=== PATIENT | female | born 1950 | race Caucasian/White ===

== ENCOUNTER 2022-05-01 13:04 | Outpatient (CLI) | payer MEDICARE, SELFPAY ==
[2022-05-01 13:16] LABS: Basophils Percent Auto 0.6 % (0.2-1.2); Eosinophils Absolute Auto 0.2 K/mm3 (0-0.3); Eosinophils Percent Auto 2.3 % (0-4.4); Hematocrit 41.8 % (37.0-47.0); Hemoglobin 13.3 g/dL (12.0-15.0); Immature Granulocyte Absolute 0.02 K/mm3 (0.00-0.031); Immature Granulocyte Percent A 0.3 % (0-0.5); Lymphocytes Absolute Auto 1.19 K/mm3 (0.9-3.2); Lymphocytes Percent Auto 17.9 % (18.3-44.2); Mean Corpuscular HGB Conc 31.8 g/dl (32-36); Mean Corpuscular Hemoglobin 30.1 pg (26-34); Mean Corpuscular Volume 94.6 fl (80-100); Mean Platelet Volume 11.7 fl (7.4-10.4); Monocytes Absolute Auto 0.5 K/mm3 (0.1-0.6); Monocytes Percent Auto 7.8 % (2.6-8.5); Neutrophils Absolute Auto 4.7 K/mm3 (1.3-6.7); Neutrophils Percent Auto 71.1 % (45.5-73.1); Platelet Count Result 207 k/mm3 (150-375); Red Blood Count 4.42 M/mm3 (4.2-5.4); Red Cell Distribution Width 13.5 % (11.5-14.5); White Blood Count 6.6 K/mm3 (4.5-10.0)
[2022-05-01 13:20] LABS: Blood Urea Nitrogen 9 mg/dL (8-26); Carbon Dioxide 26 mmol/L (22-30); Chloride 103 mmol/L (98-109); Estimated Glomerular Filt Rate > 60; Glucose 117 mg/dL (70-105); Ionized Calcium (POC) 1.11 mmol/L (1.11-1.31); Potassium 4.2 mmol/L (3.5-4.9); Sodium 139 mmol/L (138-146)
== END 2022-05-01 13:05 | disposition home or self-care (01) ==
LOC: ANHLAB 13:05
PROVIDERS: Visit Provider Internal Medicine Hematology & Oncology
DX: D75.1 Secondary polycythemia (principal)
CPT/HCPCS: 36415; 80047; 85025

== ENCOUNTER 2022-05-06 13:47 | Outpatient (CLI) | payer MEDICARE, SELFPAY ==
--- NOTE | ~2022-05-06 | CT_ITS ---
EXAMINATION: CTA chest PE protocol DATE: 05/06/2022 14:27 INDICATION: Acute pulmonary embolism TECHNIQUE: Computed tomography angiography (CTA) of the chest was performed with 100 mL Omnipaque-350 intravenous contrast timed to evaluate the pulmonary arteries. Coronal maximum intensity projection 3D-reconstructions were created by the technologist. Automated exposure control and iterative reconst ruction technique were employed. Exam dose: 264.24 mGy-cm total exam DLP. COMPARISON: None. FINDINGS: There is diagnostic contrast enhancement of the pulmonary arteries. There are right upper a nd middle lobe and particularly bilateral lower lobe pulmonary emboli. No thoracic aortic aneurysm or dissection. Heart size is within normal range. There is slight pericar dial fluid. No hilar or mediastinal mass lesion or lymphadenopathy. No pleural effusion. There are scattered small irregular nodular densities or infiltrates, including a approximate 4 in th e right upper lobe, measuring up to approximately 4.6 mm maximal dimension, approximately 5.5 mm, 5 m m and 4.7 mm opacities in the middle lobe and 6 and 6.5 mm right lower lobe irregular nodular densiti es. These may be a focal infiltrates, granulomatous infections or septic emboli; differential diagnos is includes metastatic lesions. Approximately 1.3 cm exophytic right renal cyst. The adrenal glands are unremarkable. There are couple of sclerotic lesions of the posterior left ninth rib, possibly bone islands. There is severe degenerative disease in the lower cervical spine. Diffuse idiopathic skeletal hyperos tosis of the thoracic spine. Prominent degenerative disc disease is noted in the included upper lumba r spine. IMPRESSION: Scattered multiple right upper, middle and lower lobe irregular nodular densities; diffe rential diagnosis includes focal infiltrates or granulomas versus septic emboli or metastases Right upper and middle lobe and bilateral lower lobe pulmonary emboli Dr. Bone telephoned Dr. Norman's exchange on 05/06/[address] Norman returned the phone call at 1638 hours and was informed of the bilateral pulmonary emboli a nd pulmonary lesions. He noted the patient has pancreatic cancer. The lung lesions therefore are like ly metastases Reviewed, dictated and finalized at [facility]. Reviewed, dictated and finalized at location [facility]. ECT ASSOCIATE IMPRESSION: Scattered multiple right upper, middle and lower lobe irregular no dular densities; differential diagnosis includes focal infiltrates or granuloma s versus septic emboli or metastases Right upper and middle lobe and bilateral lower lobe pulmonary emboli Dr. Bone telephoned Dr. Norman's exchange on 05/06/[address] Norman returned the phone call at 1638 hours and was informed of the bilate ral pulmonary emboli and pulmonary lesions. He noted the patient has pancreatic cancer. The lung lesions therefore are likely metastases
== END 2022-05-06 13:48 | disposition home or self-care (01) ==
PROVIDERS: PCP Internal Medicine; Visit Provider Internal Medicine Hematology & Oncology
DX: I26.99 Other pulmonary embolism without acute cor pulmonale (principal); R91.8 Other nonspecific abnormal finding of lung field
CPT/HCPCS: 71275; Q9967

== ENCOUNTER 2022-05-14 12:51 | Outpatient (CLI) | payer MEDICARE, SELFPAY ==
[2022-05-14 14:51] LABS: INR 1.4; Prothrombin Time 16.2 Seconds (11.1-14.7)
[2022-05-14 14:52] LABS: Partial Thromboplastin Time 39.2 SECONDS (22.3-36.8)
== END 2022-05-14 12:52 | disposition home or self-care (01) ==
PROVIDERS: PCP Internal Medicine; Visit Provider Surgery
DX: C25.9 Malignant neoplasm of pancreas, unspecified (principal); Z01.818 Encounter for other preprocedural examination
CPT/HCPCS: 36415; 85610; 85730

== ENCOUNTER 2022-05-14 13:26 | Outpatient (CLI) | payer MEDICARE, SELFPAY ==
[2022-05-14 14:40] LABS: Basophils Percent Auto 0.6 % (0.2-1.2); Eosinophils Absolute Auto 0.1 K/mm3 (0-0.3); Eosinophils Percent Auto 2.1 % (0-4.4); Hematocrit 41.6 % (37.0-47.0); Immature Granulocyte Absolute 0.01 K/mm3 (0.00-0.031); Immature Granulocyte Percent A 0.2 % (0-0.5); Lymphocytes Absolute Auto 1.02 K/mm3 (0.9-3.2); Lymphocytes Percent Auto 19.6 % (18.3-44.2); Mean Corpuscular HGB Conc 31.3 g/dl (32-36); Mean Corpuscular Hemoglobin 29.5 pg (26-34); Mean Corpuscular Volume 94.5 fl (80-100); Monocytes Absolute Auto 0.5 K/mm3 (0.1-0.6); Neutrophils Absolute Auto 3.6 K/mm3 (1.3-6.7); Neutrophils Percent Auto 68.5 % (45.5-73.1); Platelet Count Result 235 k/mm3 (150-375); Red Cell Distribution Width 13.9 % (11.5-14.5); White Blood Count 5.2 K/mm3 (4.5-10.0)
[2022-05-14 14:50] LABS: Alanine Aminotransferase 38 U/L (6-35); Albumin Level 4.2 g/dL (3.5-5.1); Alkaline Phosphatase 180 U/L (38-126); Anion Gap 9 mmol/L (8-16); Aspartate Amino Transferase 23 U/L (14-36); Bilirubin,Total 0.4 mg/dL (0.2-1.3); Blood Urea Nitrogen 13 mg/dL (7-17); Calcium 9.2 mg/dL (8.4-10.2); Carbon Dioxide 27 mmol/L (22-30); Chloride 102 mmol/L (98-107); Cholesterol 133 mg/dL (0-200); Estimated Glomerular Filt Rate > 60; Glucose 88 mg/dL (65-110); HDL Direct 46 mg/dL; Potassium 3.5 mmol/L (3.4-5.0); Sodium 138 mmol/L (137-145); Triglycerides 92 mg/dL (<150)
[2022-05-14 15:02] LABS: LDL Cholesterol Direct 58 mg/dL
== END 2022-05-14 13:27 | disposition home or self-care (01) ==
PROVIDERS: PCP Internal Medicine; Visit Provider Internal Medicine
DX: E78.5 Hyperlipidemia, unspecified (principal)
CPT/HCPCS: 36415; 80053; 80061; 84443; 85025

== ENCOUNTER 2022-05-22 01:29 | Day surgery (SDC) | payer MEDICARE, SELFPAY ==
[2022-05-13 11:11] VITALS: BMI 25.1
--- NOTE | 2022-05-13 11:23 | PC.NURSE ---
PRE-OP INSTRUCTIONS, PLEASE READ CAREFULLY Report to the Outpatient Waiting Room, entrance under the green pavilion located off [facility], at time _1200_ on date _05/22/22_. Planned Procedure Time: _2 PM_. Time changes happen often and if your time is changed the preop area will call you the afternoon before. - You and your visitor will be asked to self-screen and do not enter if you have any COVID symptoms. - Only one visitor is requested with a max of two and NO children visitors are allowed at this time. - The patient visitor may be requested to leave or wait in car when not with patient due to distancing restrictions. - A mask is optional within the hospital. Patients may have clear liquids (water, carbonated beverages, clear teas, apple juice) until 3 hours prior to surgery (1100 AM) with a maximum of 20 ounces. - No food from midnight until time of surgery Take the following medications with a SIP of water the morning of surgery: _NONE_ Medications to discontinue per DR. PITTS - _PLAVIX 7 DAYS PRIOR TO SURGERY, Date to take last dose 05/14/22_ - _ELIQUIS 3 DAYS PRIOR TO SURGERY, Date to take last dose 05/18/22_ Please no make-up, nail haitian, hairspray, perfume, deodorant, or body powder the day of surgery. No jewelry (including any body piercings) or valuables the day of surgery, leave them at home. Please take a shower or bath the night before, or the morning of, surgery with an antibacterial soap. Wear comfortable, loose fitting clothing. - Jewelry must be removed prior to entering the operating room. Rings and piercings that are not removed may be cut off. - The hospital will not accept responsibility for valuables. - Please leave all valuables, including medications, at home the day of surgery. If you are going home after surgery, a licensed new autos delivery driver must drive you home. - NO public transportation without another adult if you receive anesthesia. - We recommend that an adult stay with you for 24 hours following discharge. - We also recommend that you do not drive, make important decision, drink alcoholic beverages, or take any drugs that were not prescribed by your health care provider for at least 24 hours after your discharge time. Follow any additional instructions given to you from your surgeon. If you or anyone in your household have experienced Covid symptoms in the past week, please notify your surgeon or the nurse liaison at the phone number below for possible testing. Telephone instructions given to ___PT and asked if any additional questions and then verbalized understanding. Patient advised to call surgeon office or pre surgery nurse liaison [phone] if any additional questions.
--- NOTE | 2022-05-21 17:58 | PM.SD2 ---
Same Day Admit/Disch: HPI History of Present Illness Chief complaint: Pancreatic Ca , inadequate venous access Narrative: Riri Jimenez is a 71 year old female recently diagnosed with metastatic pancreatic cancer to lymph nodes and liver. She is to undergo chemotherapy and is taken to surgery now for placement of a Port-A-Cath for this purpose. She was also recently found to have pulmonary emboli and was on Eliquis which has been stopped. [facility] Past Medical History Medical History (Updated 05/22/22 @ 16:37 by Alex Ortega MD) H/O blood clots in lungs rx meds History of left heart catheterization 2020 Pancreatic cancer Surgical History Surgical History H/O: hysterectomy 1981 Family History Family History Sibling Muscular dystrophy 2 brothers Mother Brain cancer Social History Social History Smoking packs per day: 0.5 Smoking cigarettes per day: 10.0 Smoking status: Former smoker Tobacco type: cigarettes Additional smoking assessment comments: PT STATES SMOKED 1/2-1PK/DAY MANY YEARS QUIT PART 2021 Alcohol intake: never Substance use: never Substance use type: does not use Living arrangements: alone Additional living arrangements comments: Gender identity (if verbalized by the patient): Female Sexual Orientation (if Verbalized by the Patient): Straight or Heterosexual Spiritual care concerns: No Same Day Admit/Disch: Med Pre-admit Medications Home Medications Medication Instructions Recorded Confirmed Type atorvastatin 40 mg tablet 40 mg PO DAILY 01/06/22 05/13/22 History clopidogrel 75 mg tablet 75 mg PO DAILY 01/06/22 05/22/22 History apixaban 5 mg tablet (Eliquis) 5 mg DAILY 05/13/22 05/22/22 History tramadol 50 mg tablet 50 mg PO Q6H PRN pain #10 tabs 05/22/22 Rx Exam Const: General: comfortable, no acute distress, alert and awake HENMT: Head: normocephalic and atraumatic Mouth: Yes Normal oral and palatal mucosa present Eyes: Conjunctivae: conjunctivae normal Pupils: Equal, round and reactive pupils present EOM: EOMs intact bilaterally Neck: Neck: normal visual inspection, no lymphadenopathy and nontender Chest: Chest palpation & inspection: normal inspection of the chest, no crepitus, no tenderness and No rash Resp: Effort & Inspection: normal respiratory effort Auscultation: clear to auscultation bilaterally Cardio: Rate: regular rate Rhythm: regular rhythm Heart sounds: no gallops, no murmurs and no rubs GI: Inspection: non-distended GI Palp: Yes Soft to palpation, No Tenderness to palpation present (GI), No Hepatomegaly present and No Splenomegaly present Skin: Lesions: no lesions Rashes: no rashes Neuro: General: no focal motor deficits and CN's II-XI intact bilaterally Cranial nerves: Yes Equal, round and reactive pupils present, Yes Bilaterally intact EOM present, Yes facial symmetry and Yes Midline tongue present Speech: normal speech Motor exam (neuro): 5/5 motor strength present throughout and Motor abnormalities not present Extrem: General: no clubbing, cyanosis or edema and edema Psych: Affect: normal affect Thought process: Normal thought process present Insight: Good insight present (Psych) DS: Summary Time Spent with Patient Time attestation: Total time spent providing and/or coordinating discharge services: DS: Admitting Diagnosis Discharge Date 05/22/2022 Admitting Diagnosis metastatic pancreatic cancer inadequate venous access for chemotherapy-planned a place Port-A-Cath under fluoroscopy as an outpatient. The procedure the risks the benefits have been discussed. All questions were answered. She understands and agrees to go ahead. History pulmonary embolism -recent chronic anticoagulant therapy- held chronic anti thr
--- NOTE | ~2022-05-22 | XR_ITS ---
XR chest port-a-cath/central 05/22/2022 16:38 Indication: Insertion of portacatheter Procedure: AP portable chest Comparison: No prior studies for comparison. Findings: There is a left subclavian chet catheter, tip in the right atrium. Heart size normal. Ther e are diffuse bilateral interstitial infiltrates with peribronchial thickening. No significant effusi on or pneumothorax. No acute osseous abnormality. Impression: 1: Diffuse bilateral interstitial infiltrates which may represent edema or pneumonia. Reviewed, dictated and finalized at location [facility]. ER EXPERT Impression: 1: Diffuse bilateral interstitial infiltrates which may represent edema or pneu monia.
--- NOTE | ~2022-05-22 | XR_ITS ---
XR fl guide central line place 05/22/2022 16:22 Indication: Catheter placement Procedure: Fluoroscopy was performed during portacatheter placement. 1 minute 55 seconds of fluorosco py time. 1 fluoroscopic image. Comparison: CT dated 05/06/2022 Findings: There is a chet catheter, tip in the expected location of the cavoatrial junction. Please refer to procedural report. Impression: 1: Status post recent portacatheter placement, tip near the expected location of the cavoatrial junct ion. Reviewed, dictated and finalized at [facility]. [place] MERCHANDISING COORDINATOR Impression: 1: Status post recent portacatheter placement, tip near the expected location o f the cavoatrial junction.
[2022-05-22 11:35] VITALS: BMI 25.2
[2022-05-22 11:40] VITALS: BP 144/81; PULSE 93; RESP 16; TEMP 37.2; O2SAT 100
[2022-05-22] MEDS: LACTATED RINGERS 1,000 ML 30 ML IV CONT ×2 (12:00→16:17)
[2022-05-22] MEDS: KETOROLAC 15 MG/ML VIAL (*BKC) IV PUSH (12:07)
--- NOTE | 2022-05-22 12:19 | WPDHPUPDATE1 ---
History and Physical Update Update Date/Time: 05/22/22 12:19 History and Physical has been reviewed, including an updated exam of the patient. There are NO changes in the patient's condition. Risks, benefits, and alternatives have been discussed and questions answered. Patient agrees to proceed with procedure.
[2022-05-22 12:21] LABS: Prothrombin Time 12.8 Seconds (11.1-14.7)
[2022-05-22 12:22] LABS: Partial Thromboplastin Time 32.4 SECONDS (22.3-36.8)
--- NOTE | 2022-05-22 13:05 | SUR.PREOP ---
1305- Patient offered to use restroom and refusing to attempt to void in restroom at this time.
--- NOTE | 2022-05-22 13:13 | WPDANESEPPF ---
Anes - Initial Pre Proc Eval Procedure: Operation Date: 05/22/22 14:00 Proposed Procedures p Insertion Jennifer Cath - Alex Ortega MD Date/Time: 05/22/22 13:13 Surgeon: Alex Ortega MD Pre Op Diagnosis: Pancreatic Ca , inadequate venous access Patient Data Age: 71 Gender: F Height: 1.78 m Weight: 79.6 kg Last Vital Signs Temp 37.2 C 05/22/22 11:40 Pulse 93 05/22/22 11:40 Resp 16 05/22/22 11:40 BP 144/81 H 05/22/22 11:40 Pulse Ox 100 05/22/22 11:40 O2 Del Method Room Air 05/22/22 11:40 Allergies Allergy/AdvReac Type Severity Reaction Status Date / Time codeine AdvReac Mild TORE Verified 05/22/22 11:50 MIRROR OFF CAR DRIVING UNDER INFLUENCE OF CODIENE Home Medications Medication Instructions Recorded Confirmed Type atorvastatin 40 mg tablet 40 mg PO DAILY 01/06/22 05/13/22 History clopidogrel 75 mg tablet 75 mg PO DAILY 01/06/22 05/22/22 History apixaban 5 mg tablet (Eliquis) 5 mg DAILY 05/13/22 05/22/22 History Laboratory Tests 05/22/22 12:03 PT 12.8 Seconds Seconds (11.1-14.7) INR 1.0 APTT 32.4 SECONDS SECONDS (22.3-36.8) Patient hx anesthesia problems: none Family hx anesthesia problems: none Results Review: All pre-operative results and documents have been reviewed as part of the pre-operative evaluation. [facility] Past Medical History Medical History (Updated 05/22/22 @ 13:14 by Doyle Sandoval MD) H/O blood clots in lungs rx meds History of left heart catheterization 2020 Pancreatic cancer Surgical History Surgical History H/O: hysterectomy 1981 Family History Family History Sibling Muscular dystrophy 2 brothers Mother Brain cancer Social History Social History Smoking packs per day: 0.5 Smoking cigarettes per day: 10.0 Smoking status: Former smoker Tobacco type: cigarettes Additional smoking assessment comments: PT STATES SMOKED 1/2-1PK/DAY MANY YEARS QUIT PART 2021 Alcohol intake: never Substance use: never Substance use type: does not use Living arrangements: alone Additional living arrangements comments: Gender identity (if verbalized by the patient): Female Sexual Orientation (if Verbalized by the Patient): Straight or Heterosexual Spiritual care concerns: No Anes - Eval Final PreProcedure Day of Procedure 05/22/22 13:13 Patient weight: normal Heart: regular rate and rhythm Lungs: clear to auscultation Airway: Mallampati scale class II Neurological: alert and oriented Last oral intake: >/= 8 hours ASA classification: II Emergent: no Anesthetic plan: proceed Results Review: All pre-operative results and documents have been reviewed as part of the pre-operative evaluation. Informed Consent: The patient's anesthetic plan and its attendant risks and benefits were discussed with the patient/family/POA. Questions were solicited and answers provided to the satisfaction of the patient/family/POA.
--- NOTE | 2022-05-22 14:15 | SUR.PREOP ---
1415- Notified patient and friend, Marvin that procedure start time will be delayed. Patient verbalized understanding and denying needs at this time. Refusing to use restroom- declining attempting to void.
[2022-05-22] MEDS: ceFAZolin 2 GM/D5W 50 ML 2 GM/50 ML BAG IVPB (15:15)
[2022-05-22] MEDS: HEPARIN SODIUM 5,000 UNITS/ML VIAL 1000 UNITS IRRIGATION (15:40)
[2022-05-22] MEDS: LIDO 1%/EPINEPHRINE/PF 1:200,000 30 ML VIAL XX (15:58)
[2022-05-22 16:17] VITALS: BP 131/76; PULSE 88; RESP 16; O2SAT 96
[2022-05-22 16:47] VITALS: BP 135/63; PULSE 84; RESP 16; O2SAT 98
[2022-05-22 17:16] VITALS: BP 147/91; PULSE 76; RESP 16
--- NOTE | 2022-05-30 17:12 | W.PM.PROC2 ---
Procedure Note - Detailed Date of Procedure 05/22/22 Pre-op Diagnosis Pancreatic Ca , inadequate venous access Post-op Diagnosis Same Procedure Performed Placement left subclavian Port-A-Cath under fluoroscopy Surgeon Alex Ortega MD Anesthesia General ( G IV S) and Local Indications patient has been diagnosed with metastatic pancreatic cancer. She is in need of intravenous chemotherapy. We were asked by her oncologist to place a Port-A-Cath for this purpose. Findings There was difficulty threading the catheter tip into the superior vena cava. Eventually this was accomplished and the Port-A-Cath ended with a good position. Description of Procedure Patient was taken to surgery and placed in a supine position. Anesthesia was introduced. The left subclavian elective neck areas were prepped and draped. The left subclavian incision was marked on the skin. Local was infiltrated into the skin and the deeper subcutaneous tissues. Incision was then made and dissection was carried down through the subcutaneous. Crossing veins were cauterized and divided. When we came to the pectoralis major fascia, it was divided and then a subfascial pocket was created just below the incision. Cautery was used for hemostasis. Additional local was then infiltrated under the left clavicle as well as into the pectoralis major muscle and the overlying pocket. A single puncture was used to gain access to the left subclavian vein. A guidewire passed readily and under fluoroscopy the guidewire was in superior vena cava. I then used C-arm fluoroscopy to cut the Port-A-Cath tubing the the appropriate length. We then used the introducer and sheath and passed this over the guidewire. This also went into the superior vena cava. The guidewire and introducer were removed. The Port-A-Cath was passed through the sheath and presumably into the superior vena cava. However when we looked at the Port-A-Cath, after the sheath was removed, it had doubled back and was more up into the innominate vein. I pulled back on the Port-A-Cath trying to get the catheter to fall into the superior vena cava but it did not. I tried several times to advance the catheter so that it would come to lie in the superior vena cava but none of these worked either. I then cut the tubing from the Port-A-Cath reservoir. I passed the guidewire back through the lumen of the Port-A-Cath and it went into the superior vena cava. I then removed the Port-A-Cath tubing from the guidewire. A new Port-A-Cath was brought into the field with introducer set. I again placed the introducer and sleeve over the guidewire and this seemed to go more directly into the superior vena cava. I cut the new Port-A-Cath tubing to the same length. I removed the guidewire and the introducer. This time the Port-A-Cath tubing advanced directly into the superior vena cava without difficulty. I removed the sheath. We checked a Port-A-Cath by aspirating blood and flushing it with heparin. It worked nicely. I then sutured the Port-A-Cath to the pectoralis major muscle with 3-0 silk suture. It was read checked again. It again aspirated blood easily and flushed nicely with heparin. I then closed the pocket and layers with 2-0 running PDS. The skin was closed with a running subcuticular 4-0 Monocryl skin suture. The wound was dressed with Exofin surgical adhesive. The patient was awakened and taken to outpatient surgery in good condition. Sponge and needle counts were correct x2. Postprocedure chest x-ray showed no pneumothorax and the Port-A-Cath to be in good position. Implants Left subclavian vortex Port-A-Cath Estimated Blood Loss -5 Drains No Packing No Pathology None sent Complications No immediate complications Condition Stable Disposition Same day [facility] Billing Surgery - Charge Forward: Surgery Billing ( placement left subclavian vortex Port-A-Cath under fluoroscopy.)
== END 2022-05-22 17:20 | disposition home or self-care (01) ==
PROVIDERS: PCP Internal Medicine; Visit Provider Surgery
PROC: (CPT 36561; principal; 2022-05-22 14:00)
DX: C25.9 Malignant neoplasm of pancreas, unspecified (principal); C78.7 Secondary malignant neoplasm of liver and intrahepatic bile duct; C77.9 Secondary and unspecified malignant neoplasm of lymph node, unspecified; Z86.711 Personal history of pulmonary embolism; Z87.891 Personal history of nicotine dependence; Z79.01 Long term (current) use of anticoagulants; Z79.02 Long term (current) use of antithrombotics/antiplatelets
CPT/HCPCS: 36561; 36415; 77001; 80053; 80061; 84443; 85025; 85610; 85730; C1788; J0690; J1644; J1885; J2704; J3010; J7030; J7120

== ENCOUNTER 2022-08-21 08:15 | Outpatient (CLI) | payer MEDICARE, SELFPAY ==
--- NOTE | ~2022-08-21 | MR_ITS ---
EXAMINATION: MR MRCP wo/w con/w 3D wo ind DATE: 08/21/2022 09:51 INDICATION: Bile duct stricture. TECHNIQUE: Magnetic resonance imaging (MRI) of the abdomen was performed without and with 14 mL Multi Kaia intravenous contrast. Sequences included coronal T2-weighted FS FSE, coronal T2-weighted FSE, a xial T1-weighted LAVA, coronal FS FIESTA, axial dual-echo T1-weighted SPGR, coronal lava-FLEX, sagitt al T2-weighted FSE, axial T2-weighted FSE, and axial DWI. Thick-slab T2-weighted FSE images were obta ined for magnetic resonance cholangiopancreatography (MRCP). Maximum intensity projection 3-D reconst ructions of the volumetric data were created by the technologist. Postcontrast sequences included cor onal LAVA-flex and time course of axial T1-weighted LAVA. COMPARISON: Chest CT 05/06/2022 FINDINGS: ABDOMEN MRI: There are 4 hypoenhancing masses in the liver measuring up to 9 mm. There is severe intr ahepatic biliary duct dilatation. There is a stricture of the distal common bile duct. The pancreatic duct is dilated to 9 mm, and there is dilatation of the pancreatic duct sidechains. In the head of t he pancreas, there is an ill-defined 2.1 cm mass that is occult on most sequences but demonstrates in creased signal intensity in the earliest on postcontrast sequences. The gallbladder is distended and contains sludge. The spleen and adrenal glands are normal. There are cysts in the kidneys measuring u p to 15 mm on the right. There are no dilated loops of bowel. ABDOMEN MRCP: There is severe intrahepatic and extrahepatic biliary duct dilatation. The common duct is dilated to 2.2 cm. The pancreatic duct is dilated. IMPRESSION: 1. Ill-defined 2.1 cm mass in the head of the pancreas with severe biliary duct dilatation and pancre atic duct dilatation, consistent with primary adenocarcinoma. 2. Four hypoenhancing liver masses measuring up to 9 mm, consistent with metastatic disease. Reviewed, dictated and finalized at location A. ALT PAVING MACHINE OPERATOR IMPRESSION: 1. Ill-defined 2.1 cm mass in the head of the pancreas with severe biliary duct dilatation and pancreatic duct dilatation, consistent with primary adenocarcin perla. 2. Four hypoenhancing liver masses measuring up to 9 mm, consistent with metast atic disease.
== END 2022-08-21 08:16 ==
LOC: GOSHIMG 08:19
PROVIDERS: PCP Internal Medicine; Visit Provider Nurse Practitioner Family
DX: K83.1 Obstruction of bile duct (principal); K86.9 Disease of pancreas, unspecified
CPT/HCPCS: 74183; 76376; A9577

== ENCOUNTER 2022-08-30 18:41 | Emergency (ER) | payer MEDICARE, SELFPAY ==
--- NOTE | ~2022-08-30 | CT_ITS ---
CT of the Abdomen and Pelvis: Indication: Jaundice, diarrhea Technique: 2.5 mm axial scans were obtained through the abdomen and pelvis following intravenous adm inistration of 100 cc of Omnipaque 350. Dose reduction technique was used on this scan by utilizing a utomated exposure control and iterative reconstruction technique. The dose-length product (DLP) was 5 06.97 mGy-cm. Findings: Scans through the lung bases demonstrate 5 mm right middle lobe nodule (axial image 12). 4 mm right lower lobe pulmonary nodule noted (axial image 18). 4 mm left lower lobe pulmonary nodule a lso present (axial image 10). There is probable mild left basilar atelectatic change.. There is marked, diffuse intrahepatic biliary dilatation, as well as extensive marked dilatation of t he common bile duct, which measures up to 2.3 cm in diameter. There is extensive dilatation of the ma in pancreatic duct, which measures up to 1 cm in diameter. There is abrupt cut off of both the common bile duct and main pancreatic duct at the pancreatic head region, which is suspicious for underlying ill-defined mass lesion. There are multiple mildly prominent peripancreatic and central mesenteric l ymph nodes, suspicious for early/small rui metastatic disease. Gallbladder is distended with gallbl adder sludge present. The spleen, adrenals and kidneys are within normal limits. No evidence of aortic aneurysm. No lymph adenopathy. There is mild diffuse mesenteric edema. No bowel obstruction evident. Images through the pelvis were performed. Urinary bladder unremarkable. Patient is probably post hyst erectomy. No definite pelvic mass seen. Small amount of pelvic ascites present. Impression: Findings suspicious for ill-defined pancreatic head mass, which would be most compatible with pancrea tic adenocarcinoma. There is marked intrahepatic and extrahepatic biliary dilatation, as well as exte nsive dilatation of the main pancreatic duct. Please see details above, as well as refer to recent MR dated 08/21/2022. Multiple small probable metastatic lymph nodes or peritoneal implants in the peripancreatic region an d central mesentery. Several subcentimeter pulmonary nodules at the lung bases, which could represent small metastatic les ions. Gallbladder sludge. Reviewed, dictated and finalized at location . [employer] Impression: Findings suspicious for ill-defined pancreatic head mass, which would be most c ompatible with pancreatic adenocarcinoma. There is marked intrahepatic and extr ahepatic biliary dilatation, as well as extensive dilatation of the main pancre atic duct. Please see details above, as well as refer to recent MR dated 08/22/19 23. Multiple small probable metastatic lymph nodes or peritoneal implants in the pe ripancreatic region and central mesentery. Several subcentimeter pulmonary nodules at the lung bases, which could represen t small metastatic lesions. Gallbladder sludge.
--- NOTE | ~2022-08-30 | XR_ITS ---
Portable chest x-ray Comparison: 05/22/2022 Clinical History: Weakness, jaundice Findings: Left-sided Mediport is unchanged. Lungs are clear, without focal consolidation or pleural effusion. Cardiomediastinal silhouette is stable. Bones and soft tissues are unremarkable. Impression: Clear lungs. Stable left-sided Mediport. Reviewed, dictated and finalized at location . D TREATMENT RN Impression: Clear lungs. Stable left-sided Mediport.
[2022-08-30 18:43] VITALS: BP 143/84; PULSE 110; RESP 20; TEMP 37.1; O2SAT 100
[2022-08-30 18:51] VITALS: PULSE 110
--- NOTE | 2022-08-30 18:53 | ECG_ITS ---
Measurements Intervals [place] Rate: 108 P: 134 W[place]: 126 QRS: 205 QRSD: 98 T: 195 QT: 282 QTc: 379 Interpretive Statements SINUS TACHYCARDIA LIMB LEAD REVERSAL BORDERLINE R WAVE PROGRESSION, ANTERIOR LEADS BORDERLINE ST-T WAVE ABNORMALITY- ANT/INF LEADS BASELINE ARTIFACT- I, II, AVR, AVL, V4-V6 ABNORMAL ECG NO PREVIOUS ECG AVAILABLE FOR COMPARISON Electronically Signed On 08-31-2022 7:53:35 CDT by Michael Mejía D.O.
--- NOTE | 2022-08-30 19:16 | PC.NURSE ---
Report given to Gal IRWIN
[2022-08-30 19:18] LABS: Basophils Percent Auto 0.2 % (0.2-1.2); Hematocrit 28.1 % (37.0-47.0); Hemoglobin 8.7 g/dL (12.0-15.0); Immature Granulocyte Absolute 0.07 K/mm3 (0.00-0.031); Immature Granulocyte Percent A 0.6 % (0-0.5); Lymphocytes Absolute Auto 0.43 K/mm3 (0.9-3.2); Lymphocytes Percent Auto 3.8 % (18.3-44.2); Mean Corpuscular Volume 103.3 fl (80-100); Monocytes Percent Auto 8.9 % (2.6-8.5); Neutrophils Absolute Auto 9.7 K/mm3 (1.3-6.7); Neutrophils Percent Auto 86.5 % (45.5-73.1); Platelet Count Result 266 k/mm3 (150-375); Red Blood Count 2.72 M/mm3 (4.2-5.4); White Blood Count 11.2 K/mm3 (4.5-10.0)
[2022-08-30 19:31] VITALS: BP 119/77; PULSE 105; RESP 29; TEMP 36.6
[2022-08-30 19:31] LABS: Alanine Aminotransferase 98 U/L (6-35); Albumin Level 2.7 g/dL (3.5-5.1); Alkaline Phosphatase 970 U/L (38-126); Anion Gap 7 mmol/L (8-16); Aspartate Amino Transferase 259 U/L (14-36); Bilirubin,Total 24.3 mg/dL (0.2-1.3); Blood Urea Nitrogen 11 mg/dL (7-17); Calcium 7.7 mg/dL (8.4-10.2); Carbon Dioxide 23 mmol/L (22-30); Chloride 105 mmol/L (98-107); Estimated CRCL calculation 49 ml/min; Estimated Glomerular Filt Rate 55; Glucose 130 mg/dL (65-110); Potassium 2.6 mmol/L (3.4-5.0); Sodium 135 mmol/L (137-145)
[2022-08-30 19:47] LABS: Anisocytosis 2+ (NORMAL); Platelet Estimate Adequate (Adequate)
[2022-08-30 19:48] LABS: Schistocytes None Seen (NORMAL)
[2022-08-30 19:52] LABS: Hypochromasia 1+ (NORMAL)
[2022-08-30 19:57] LABS: Lipase 127 U/L (23-300); Magnesium 1.4 mg/dL (1.6-2.3)
[2022-08-30 20:10] LABS: INR 1.4; Prothrombin Time 16.9 Seconds (11.1-14.7)
[2022-08-30] MEDS: KCL 20 MEQ/SW 100 ML 100 ML 50 MEQ IVPB (20:11)
--- NOTE | 2022-08-30 20:30 | ED.GENADULT ---
HPI - General Adult General Chief complaint: Unspecified Stated complaint: weakness Time Seen by Provider: 08/30/22 19:10 History of Present Illness HPI narrative: Patient 72-year-old female who presents to the emergency department with chief complaint of increased jaundice noticed. Patient reports that she has a diagnosis of pancreatic liver and multiple other metastatic areas of cancer. The patient is seeing oncology locally and has been undergoing chemo but they have held her chemo and are planning on her having a biliary stent on Thursday at [facility]. Patient reports that over the last several days she is becoming progressively weaker and has noticed her jaundice has become more pronounced. Patient states now she has difficulty ambulating and feels just overall weak. Related Data Home Medications Medication Instructions Recorded Confirmed atorvastatin 40 mg tablet 40 mg PO DAILY 01/06/22 08/20/22 clopidogrel 75 mg tablet 75 mg PO DAILY 01/06/22 08/20/22 ondansetron HCl 4 mg tablet 4 mg PO Q6-8H PRN Nausea 06/09/22 08/20/22 diphenoxylate-atropine 2.5 1 tablet PO QID PRN diarrhea 07/01/22 08/13/22 mg-0.025 mg tablet (Lomotil) potassium chloride 20 mEq 40 meq PO BID 07/01/22 08/20/22 tablet,extended release cyanocobalamin (vitamin B-12) 1,000 mcg PO MONTHLY 08/20/22 08/20/22 1,000 mcg capsule megestrol 40 mg tablet 40 mg PO DAILY 08/20/22 08/20/22 omeprazole 40 mg capsule,delayed 40 mg PO DAILY 08/20/22 08/20/22 release polysaccharide iron complex 200 mg 200 mg PO DAILY 08/20/22 08/20/22 iron capsule (EZFE 200) potassium chloride 10 mEq 10 meq PO DAILY 08/20/22 08/20/22 capsule,extended release Allergies Allergy/AdvReac Type Severity Reaction Status Date / Time codeine AdvReac Mild TORE Verified 08/30/22 18:51 MIRROR OFF CAR DRIVING UNDER INFLUENCE OF CODIENE Review of Systems Review of Systems: A 10 system review of systems was completed on the patient and is negative except for what is stated in the HPI. Nursing and ancillary documentation was reviewed. [facility] Past Medical History Medical History H/O blood clots in lungs rx meds History of left heart catheterization 2020 Jaundice Pancreatic cancer Surgical History Surgical History H/O: hysterectomy 1981 Family History Family History Sibling Muscular dystrophy 2 brothers Mother Brain cancer Social History Social History Smoking packs per day: 0.5 Smoking cigarettes per day: 10.0 Years smoked: 56 Smoking pack-years: 28.00 Smoking status: Current every day smoker Tobacco type: cigarettes Additional smoking assessment comments: PT STATES SMOKED 1/2-1PK/DAY MANY YEARS QUIT PART 2021 Alcohol intake: never Substance use: never Substance use type: does not use Living arrangements: alone Additional living arrangements comments: Occupation/Education: retired Gender identity (if verbalized by the patient): Female Sexual Orientation (if Verbalized by the Patient): Straight or Heterosexual Spiritual care concerns: No Exam Narrative: GENERAL: Well-appearing, well-nourished, and in no acute distress. HEAD: Normocephalic, atraumatic. EYES: PERRLA and EOMI. eyes are icteric ENT: Nares clear, no rhinorrhea or epistaxis. Mucous membranes moist. NECK: Supple. CHEST: Clear to auscultation. No respiratory distress. HEART: Regular rate and rhythm. No murmur heard. Normal peripheral pulses. ABDOMEN: Soft, nontender, nondistended, normal active bowel sounds. EXTREMITIES: Normal range of motion. No edema. SKIN: Warm, dry, no rash. Patient is highly jaundiced NEURO: No focal deficits. Alert an
[2022-08-30 21:20] VITALS: BP 107/76; PULSE 99; RESP 20; TEMP 36.6; O2SAT 99
[2022-08-30] MEDS: MAGNESIUM SULF 2 GM/WATER 50ML 2 GM/50 ML BAG IVPB (21:53)
[2022-08-30] MEDS: SODIUM CHLORIDE 0.9% IV 1,000 ML 999 ML IV CONT (21:53)
[2022-08-30 22:19] VITALS: BP 107/69; PULSE 98; RESP 18; TEMP 36.6; O2SAT 99
== END 2022-08-30 23:34 | disposition short-term general hospital (02) ==
PROVIDERS: Emergency Medicine; Emergency Provider Emergency Medicine; PCP Internal Medicine
DX: C25.9 Malignant neoplasm of pancreas, unspecified (principal); R17 Unspecified jaundice; K83.1 Obstruction of bile duct; E87.6 Hypokalemia; E83.42 Hypomagnesemia; C78.7 Secondary malignant neoplasm of liver and intrahepatic bile duct; C79.9 Secondary malignant neoplasm of unspecified site; Z86.711 Personal history of pulmonary embolism; Z90.710 Acquired absence of both cervix and uterus; Z87.891 Personal history of nicotine dependence; R00.0 Tachycardia, unspecified; R94.31 Abnormal electrocardiogram [ECG] [EKG]
CPT/HCPCS: 36415; 71045; 74177; 80053; 83605; 83690; 83735; 85025; 85610; 85730; 87040; 87077; 87147; 87181; 87186; 93005; 96365; 96367; 99284; J3475; J3480; J7030; Q9967